=== PATIENT | male | born 1990 | race Caucasian/White ===

== ENCOUNTER 2016-07-14 20:47 | Emergency (ER) | payer OTHER ==
[~2016-07-14] VITALS: Ht 160 cm; Wt 67.1 kg
--- NOTE | 2016-07-14 21:55 | ED EAR COMPLAINT ---
History of Present Illness General Chief Complaint: General Adult Stated Complaint: OCAMPO/EAR PAIN/COUGH Source: patient Exam Limitations: no limitations Vital Signs & Intake/Output Vital Signs & Intake/Output Vital Signs Date Time Temp Pulse Resp B/P Pulse O2 O2 Flow FiO2 Ox Delivery Rate 07/147 98.9 66 18 134/89 100 Room Air 07/14 2117 98.8 65 18 139/91 99 Room Air ED Intake and Output 07/15 0000 07/14 1200 Intake Total Output Total Balance Patient 148 lb Weight Allergies Coded Allergies: MDX - Penicillin (PENICILLIN) (Intermediate, RASH 11/28/12) Reconcile Medications Cortisporin (Cortisporin Ointment) 1 % OINT...G. 1 % OT 4 TIMES/DAY EAR INFECTION Ibuprofen 800 MG TABLET 1 TAB PO TID HEADACHE Triage Note: PT TO ED C/O HEADACHES, LEFT EAR PAIN AND COUGH FOR A WEEK. VSS. Triage Nurses Notes Reviewed? yes Onset: Abrupt Duration: day(s):, constant, continues in ED Timing: recent history Severity: moderate, severe No Modifying Factors: none HPI: 25-year-old male comes into emergency room for further evaluation of left ear pain and headache sediment going on for the past week. Denies any runny nose congestion currently. Denies any fever chills vomiting. Headache is located on the left side. Denies any vomiting. Denies any vision loss. No neurological symptoms such as slurring words confusion. Denies any other associated symptoms. (ZEFERINO DIAZ) Past History Travel History Traveled to [place] past 21 day No Medical History Any Pertinent Medical History? none Surgical History Surgical History: non-contributory Psychosocial History What is your primary language Macanese Tobacco Use: Never used ETOH Use: denies use Illicit Drug Use: denies illicit drug use Family History Hx Contributory? No (ZEFERINO DIAZ) Review of Systems Review of Systems Constitutional: Reports: no symptoms. EENTM: Reports: see HPI. Respiratory: Reports: no symptoms. Cardiovascular: Reports: no symptoms. GI: Reports: no symptoms. Genitourinary: Reports: no symptoms. Musculoskeletal: Reports: no symptoms. Skin: Reports: no symptoms. Neurological/Psychological: Reports: no symptoms. Hematologic/Endocrine: Reports: no symptoms. Immunologic/Allergic: Reports: no symptoms. All Other Systems: Reviewed and Negative (ZEFERINO DIAZ) Physical Exam Physical Exam General Appearance: well developed/nourished, mild distress Head: atraumatic Ears: Left: other (CERUMEN IMPACTION). Nose: normal inspection Mouth/Throat: normal mouth inspection, pharynx normal Neck: normal inspection Cardiovascular/Respiratory: no respiratory distress Back: normal inspection Neurologic/Psych: no motor/sensory deficits, awake, alert, oriented x 3, normal mood/affect, oil well driller II-XII nml as tested Skin: intact, normal color, warm/dry (ZEFERINO DIAZ) Progress Differential Diagnoses I considered the following diagnoses in my evaluation of the patient: Cerumen impaction, otitis media, otitis externa, perforation, tension headache, intracranial bleed, mass, migraine, Plan of Care: 07/15/2016 11:21:11 AM Patient's ear pain has resolved after the irrigation of the ear. Slightly erythematous and the inside of the canal and in her ear. Patient started on topical antibiotic drops. Could be result of irrigation itself. Headache is likely related to the ear pain which has radiated pain. Patient neurologically is intact. Clinically looks well. Patient will be provided ibuprofen and eardrops and if his symptoms don't improve he was recommended to follow-up with his primary care doctor for further evaluation Initial ED EKG: none (ZEFERINO DIAZ) Departure Departure Disposition: HOME OR SELF CARE Condition: Stable Clinical Impression Primary Impression: Impacted cerumen of left ear Referrals: VIN GOODSON,MARLEN York (PCP/Family) Additional Instructions: Use Cortisporin drops as prescribed. Take ibuprofen as prescribed. Follow-up with your primary care doctor if headaches persist. Return if any other concerns worsening symptoms. Please go over all results of today's visit with your primary care doctor. Contact your primary care doctor to let them know you were here in the emergency room. There may be nonspecific findings which may not be related to your visit today here in the emergency room but may require further evaluation and chronic monitoring by your primary care doctor. If you had a laceration today the chance of foreign body always remains. You should follow-up with your primary care doctor for recheck in 3-5 days for a wound check. If you had an x-ray done there is a chance that a fracture could have been missed on initial read and you should follow-up with your primary care doctor for repeat x-rays if symptoms persist. If your blood pressure was elevated here in the emergency room please have rechecked by her primary care doctor within the next 48 hours by your primary care doctor. If you were prescribed a narcotic here in the emergency room or any type of controlled substances you're not allowed to drive while taking this medication or operate any type of heavy machinery. Narcotics can make you feel lightheaded dizziness nausea and can cause constipation. You may need to tow picker a stool softener. Thank you for choosing [facility] emergency room. Please return to the emergency room immediately if you have any other concerns worsening of symptoms. Departure Forms: Customer Survey General Discharge Information Prescriptions: Current Visit Scripts Cortisporin (Cortisporin Ointment) 1 % OT 4 TIMES/DAY #1 TUBE Ibuprofen 1 TAB PO TID #20 TAB (ZEFERINO DIAZ) PA/COMMISSARY WORKER Co-Sign Statement Statement: ED Attending supervision documentation- [] I saw and evaluated the patient. I have also reviewed all the pertinent lab results and diagnostic results. I agree with the findings and the plan of care as documented in the PA's/COMMISSARY WORKER's documentation. [X] I have reviewed the ED Record and agree with the PA's/COMMISSARY WORKER's documentation. [] Additions or exceptions (if any) to the PAs/COMMISSARY WORKER's note and plan are summarized below: [] (KIRK GOODSON,AUGUSTINA)
[2016-07-14] MEDS ORDERED: CORTISPORIN OIN15 G1 OT (22:31)
[2016-07-14] MEDS ORDERED: IBUPROFEN800 M1 PO (22:31)
[2016-07-14 22:37] VITALS: BP 134/89
== END 2016-07-14 22:37 ==
LOC: ERH 20:47
DX: H61.22 Impacted cerumen, left ear (principal)